=== PATIENT | female | born 2000 | race Caucasian/White ===

== ENCOUNTER 2018-09-16 13:37 | Emergency (ER) | payer OTHER | END 2018-09-16 16:22 | disposition home or self-care (01) | LOC: M ED 13:37 | DX: K59.00 Constipation, unspecified (principal); D17.9 Benign lipomatous neoplasm, unspecified | CPT/HCPCS: 74021 ==

== ENCOUNTER → 2021-11-05 | Outpatient (CLI) | payer OTHER ==
[~2021-11-05] MED LIST: COLA100C5 PO
== END ==
LOC: M WHC 13:29
PROVIDERS: ATTEND Advanced Practice Midwife
DX: Z34.01 Encounter for supervision of normal first pregnancy, first trimester (principal)

== ENCOUNTER → 2021-12-31 | Outpatient (CLI) | payer OTHER | LOC: M WHC 07:52 | PROVIDERS: ATTEND Obstetrics & Gynecology | DX: Z36.89 Encounter for other specified antenatal screening (principal); Z3A.18 18 weeks gestation of pregnancy ==

== ENCOUNTER → 2022-02-18 | Outpatient (CLI) | payer OTHER | LOC: M WHC 13:05 | PROVIDERS: ATTEND Obstetrics & Gynecology | DX: Z34.02 Encounter for supervision of normal first pregnancy, second trimester (principal) ==

== ENCOUNTER → 2022-03-25 | Outpatient (CLI) | payer OTHER ==
[2022-03-25 14:07] LABS: HEMATOCRIT 33.6 % (36.0-47.0); HEMOGLOBIN 10.8 g/dl (12.0-15.5); MEAN CORPUSCULAR HEMOGLOBIN 28.6 pg (27.0-33.0); MEAN CORPUSCULAR HGB CONC 32.1 g/dl (32.0-36.5); MEAN CORPUSCULAR VOLUME 88.9 fl (80.0-96.0); PLATELET COUNT, AUTOMATED 240 10^3/uL (150-450); RED BLOOD COUNT 3.78 10^6/uL (4.00-5.40); WHITE BLOOD COUNT 12.3 10^3/uL (4.0-10.0)
[2022-03-25 15:45] LABS: GC DNA AMPLIFICATION NEGATIVE (NEGATIVE)
== END ==
LOC: M PLALAB 08:35
PROVIDERS: ATTEND Obstetrics & Gynecology
DX: Z34.02 Encounter for supervision of normal first pregnancy, second trimester (principal)

== ENCOUNTER → 2022-04-08 | Outpatient (CLI) | payer OTHER | LOC: M WHC 12:34 | PROVIDERS: ATTEND Advanced Practice Midwife | DX: Z34.03 Encounter for supervision of normal first pregnancy, third trimester (principal) ==

== ENCOUNTER → 2022-04-20 | Outpatient (CLI) | payer OTHER | LOC: M LAB 04-16 07:17 | PROVIDERS: ATTEND Advanced Practice Midwife | DX: O99.810 Abnormal glucose complicating pregnancy (principal); Z3A.00 Weeks of gestation of pregnancy not specified ==

== ENCOUNTER → 2022-04-22 | Outpatient (REF) | payer OTHER | LOC: M LAB REF 22:40 | PROVIDERS: ATTEND Physician Assistant | DX: N39.0 Urinary tract infection, site not specified (principal) ==

== ENCOUNTER 2022-05-10 02:54 | Inpatient (IN) | payer OTHER ==
[2022-05-10] VITALS (42 sets, daily range): BP systolic 108–179; BP diastolic 61–95
[~2022-05-10] VITALS: Ht 165.1 cm; Wt 102.0 kg
[2022-05-10] MEDS ORDERED: METHYLERGONOVINE MALEATE 0.2 MG/ML VIAL (J2210) IM PRN (03:30)
[2022-05-10] MEDS ORDERED: OXYTOCIN DRIP 30 UNITS in IV 1 EA IV PRN ×4 (03:30)
[2022-05-10] MEDS ORDERED: CARBOPROST TROMETHAMINE 250 MCG/ML AMP IM PRN (03:30)
[2022-05-10] MEDS ORDERED: TRANEXAMIC ACID INJection 1,000 MG in NS 100 ML IV PRN (03:30)
[2022-05-10] MEDS ORDERED: LACTATED RINGER'S 1000 ML IV PRN (03:30)
[2022-05-10] MEDS ORDERED: PENICILLIN G POTASSIUM IV 5 MU in D5W MINI-BAG PLUS 100 ML IV STA (03:40)
[2022-05-10 03:57] LABS: HEMATOCRIT 34.6 % (36.0-47.0); HEMOGLOBIN 11.4 g/dl (12.0-15.5); MEAN CORPUSCULAR HEMOGLOBIN 27.9 pg (27.0-33.0); MEAN CORPUSCULAR HGB CONC 32.9 g/dl (32.0-36.5); MEAN CORPUSCULAR VOLUME 84.8 fl (80.0-96.0); PLATELET COUNT, AUTOMATED 296 10^3/uL (150-450); RED BLOOD COUNT 4.08 10^6/uL (4.00-5.40); WHITE BLOOD COUNT 16.7 10^3/uL (4.0-10.0)
[2022-05-10] MEDS ORDERED: HOME MED LIST COMPLETE! XX SCH ×2 (04:10→09:05)
[2022-05-10 04:20] LABS: ALBUMIN 2.7 GM/DL (3.2-5.2); ALT/SGPT 25 U/L (12-78); BILIRUBIN,TOTAL 0.3 MG/DL (0.2-1.0); BLOOD UREA NITROGEN 10 MG/DL (7-18); CALCIUM LEVEL 9.3 MG/DL (8.5-10.1); CARBON DIOXIDE LEVEL 20 MEQ/L (21-32); CHLORIDE LEVEL 106 MEQ/L (98-107); CREATININE FOR GFR 0.64 MG/DL (0.55-1.30); GLOMERULAR FILTRATION RATE > 60.0 (>60); GLUCOSE, FASTING 80 MG/DL (70-100); POTASSIUM SERUM 3.9 MEQ/L (3.5-5.1); SODIUM LEVEL 139 MEQ/L (136-145); TOTAL PROTEIN 6.9 GM/DL (6.4-8.2)
[2022-05-10] MEDS ORDERED: FENTANYL 2MCG/ML ROPIVACAINE 0.2% IN 0.9% NACL 100ML IVBAG As Ordered ONE (04:51)
[2022-05-10] MEDS ORDERED: diphenhydrAMINE 50MG/ML VIAL (J1200) IV PRN (05:50)
[2022-05-10] MEDS ORDERED: ONDANSETRON 4MG 2ML VIAL IV PRN (05:50)
[2022-05-10] MEDS ORDERED: ePHEDrine SULFATE 25 MG/5 ML(5MG/ML) SYRINGE IVP PRN (05:50)
[2022-05-10] MEDS ORDERED: LR 500 ML IV PRN (05:50)
[2022-05-10] MEDS ORDERED: EPIDURAL/PCA KEYS XX PRN (05:50)
[2022-05-10] MEDS ORDERED: NALOXONE INJ 0.4MG/1ML VIAL (J2310 PER 1MG) IV PRN (05:50)
[2022-05-10] MEDS: FENTANYL/ROPIVACAINE/NACL BAG 100 ML EPIDURAL SCH ×2 (06:03→14:32)
[2022-05-10] MEDS: PENICILLIN G POTASSIUM IV 2.5 MU in IV 1 EA IV SCH ×2 (08:37→12:17)
[2022-05-10] MEDS ORDERED: ACET-907 PO (09:03)
[2022-05-10] MEDS ORDERED: LR 1,000 ML IV SCH (10:50)
[2022-05-10 15:21] LABS: CORD GAS HCO3 A 17.1 MEQ/L; CORD GAS PCO2 A 60.8 mmHg; CORD GAS PH A 7.067 UNITS; CORD GAS PO2 A 24.1 mmHg; CORD GAS SBC A 12.9 MEQ/L
[2022-05-10 15:23] LABS: CORD GAS ABE V -6.3; CORD GAS HCO3 V 19.3 MEQ/L; CORD GAS O2 SAT V 75.3 %; CORD GAS PCO2 V 38.4 mmHg; CORD GAS PH V 7.318 UNITS; CORD GAS PO2 V 33.5 mmHg; CORD GAS SBC V 18.9 MEQ/L; CORD GAS TCO2 V 20.4 MEQ/L
[2022-05-10] MEDS ORDERED: DIBUCAINE 1% OINTMENT 30GM TOP PRN (16:15)
[2022-05-10] MEDS ORDERED: RHOGAM 300 MCG (1500 IU) INJ (J2790) IM SCH (16:15)
[2022-05-10] MEDS ORDERED: ACETAMINOPHEN TAB 650MG DOSE (2X325MG) PO PRN (16:15)
[2022-05-10] MEDS ORDERED: IBUPROFEN 600MG TAB PO PRN (16:15)
[2022-05-10] MEDS ORDERED: IBUPROFEN 800 MG TAB PO PRN (16:15)
[2022-05-10] MEDS ORDERED: ANUSOL HC CREAM 30GM TOP PRN (16:15)
[2022-05-10] MEDS ORDERED: ACETAMINOPHEN 500 MG TAB PO PRN (16:15)
[2022-05-10] MEDS ORDERED: MOM 30ML SUSPENSION UDC PO PRN (16:15)
[2022-05-10] MEDS: DOCUSATE SODIUM 100MG CAPSULE PO SCH (21:17)
[2022-05-11] MEDS ORDERED: UNRESOLVED CLARIFICATION ENTRY XX SCH (00:01)
[2022-05-11 06:00] VITALS: BP 100/66
[2022-05-11] MEDS: DOCUSATE SODIUM 100MG CAPSULE PO SCH ×2 (09:10→21:12)
[2022-05-11] MEDS: PRENATAL VITAMINS CHEWABLE TABLET PO SCH (09:10)
[2022-05-11 18:00] VITALS: BP 124/78
[2022-05-12 06:14] VITALS: BP 123/78
[2022-05-12] MEDS: PRENATAL VITAMINS CHEWABLE TABLET PO SCH (08:02)
[2022-05-12] MEDS: DOCUSATE SODIUM 100MG CAPSULE PO SCH (08:03)
[2022-05-12] MEDS ORDERED: MEASLES,MUMPS,RUBELLA VACCINE INJ (MMR-II) (90707) SC.IMMUN ONE (09:00)
== END 2022-05-12 13:05 | disposition home or self-care (01) | DRG 560 ==
LOC: M LDO 02:54 → M LDI 03:25 → M OBS 18:35
PROVIDERS: ADMIT Obstetrics & Gynecology; ATTEND Advanced Practice Midwife
PROC: 10E0XZZ Delivery of Products of Conception, External Approach (ICD-10-PCS; principal; 2022-05-10)
PROC: 0KQM0ZZ Repair Perineum Muscle, Open Approach (ICD-10-PCS; 2022-05-10)
DX: O69.81X0 Labor and delivery complicated by cord around neck, without compression, not applicable or unspecified (principal); Z3A.38 38 weeks gestation of pregnancy; O70.1 Second degree perineal laceration during delivery; Z37.0 Single live birth; O67.8 Other intrapartum hemorrhage

== ENCOUNTER → 2023-11-21 | Outpatient (REF) | payer OTHER ==
[~2023-11-21] MED LIST changes: +ACET-907 PO
== END ==
LOC: M LAB REF 21:17
PROVIDERS: ATTEND Physician Assistant Medical
DX: J02.9 Acute pharyngitis, unspecified (principal)

== ENCOUNTER → 2024-05-18 | Outpatient (REF) | payer BC, OTHER ==
[2024-05-18 15:30] LABS: GC DNA AMPLIFICATION NEGATIVE (NEGATIVE)
== END ==
LOC: M PLALAB 11:36
PROVIDERS: ATTEND Advanced Practice Midwife
DX: O99.211 Obesity complicating pregnancy, first trimester (principal)

== ENCOUNTER → 2024-07-09 | Outpatient (CLI) | payer BC, OTHER ==
[2024-07-09 16:11] LABS: HEMATOCRIT 36.8 % (36.0-47.0); HEMOGLOBIN 12.1 g/dl (12.0-15.5); MEAN CORPUSCULAR HEMOGLOBIN 28.9 pg (27.0-33.0); MEAN CORPUSCULAR HGB CONC 32.9 g/dl (32.0-36.5); MEAN CORPUSCULAR VOLUME 87.8 fl (80.0-96.0); PLATELET COUNT, AUTOMATED 256 10^3/uL (150-450); RED BLOOD COUNT 4.19 10^6/uL (4.00-5.40); WHITE BLOOD COUNT 11.4 10^3/uL (4.0-10.0)
[2024-07-09 16:50] LABS: HIV 1&2 SCREEN NEGATIVE (NEGATIVE)
[2024-07-09 16:57] LABS: HEPATITIS C VIRUS ABY INDEX 0.12 INDEX (<0.8)
[2024-07-09 17:22] LABS: GC DNA AMPLIFICATION NEGATIVE (NEGATIVE)
== END ==
LOC: M PLALAB 13:32
PROVIDERS: ATTEND Advanced Practice Midwife
DX: Z34.02 Encounter for supervision of normal first pregnancy, second trimester (principal)

== ENCOUNTER → 2024-08-21 | Outpatient (CLI) | payer OTHER | LOC: M RAD 14:52 | PROVIDERS: ATTEND Obstetrics & Gynecology | DX: Z34.80 Encounter for supervision of other normal pregnancy, unspecified trimester (principal) ==

== ENCOUNTER → 2024-09-17 | Outpatient (REF) | payer BC, OTHER ==
[2024-09-17 18:22] LABS: AMORPHOUS SEDIMENT SMALL (NEGATIVE); APPEARANCE, URINE CLOUDY (CLEAR); BACTERIA, URINE AUTO NEGATIVE (NEGATIVE); BILIRUBIN, URINE AUTO NEGATIVE (NEGATIVE); BLOOD, URINE BLOOD 3+ (NEGATIVE); COLOR, URINE RED (YELLOW); GLUCOSE, URINE (UA) AUTO NEGATIVE (NEGATIVE); KETONE, URINE AUTO NEGATIVE (NEGATIVE); LEUKOCYTE ESTERASE, URINE AUTO 3+ (NEGATIVE); MUCUS, URINE SMALL (NEGATIVE); NITRITE, URINE AUTO NEGATIVE (NEGATIVE); PROTEIN, URINE AUTO 1+ mg/dL (NEGATIVE); RBC, URINE AUTO 41 /HPF (0-3); SPECIFIC GRAVITY URINE AUTO 1.018 (1.002-1.035); SQUAMOUS EPITHELIAL CELL UR AU 7 /HPF (0-6); UROBILINOGEN, URINE AUTO 0.2 mg/dL (0.0-2.0); WBC, URINE AUTO 68 /HPF (0-3)
== END ==
LOC: M PLALAB 15:33
PROVIDERS: ATTEND Obstetrics & Gynecology
DX: R31.0 Gross hematuria (principal)

== ENCOUNTER → 2024-10-29 | Outpatient (CLI) | payer OTHER ==
[2024-10-29 14:59] LABS: HEMATOCRIT 32.5 % (36.0-47.0); HEMOGLOBIN 10.5 g/dl (12.0-15.5); MEAN CORPUSCULAR HGB CONC 32.3 g/dl (32.0-36.5); MEAN CORPUSCULAR VOLUME 86.7 fl (80.0-96.0); PLATELET COUNT, AUTOMATED 230 10^3/uL (150-450); RED BLOOD COUNT 3.75 10^6/uL (4.00-5.40); WHITE BLOOD COUNT 13.4 10^3/uL (4.0-10.0)
[2024-10-29 16:07] LABS: GLUCOSE CHALLENGE TEST 1 HOUR 129 MG/DL (LESS THAN 140)
[2024-10-29 16:15] LABS: GC DNA AMPLIFICATION NEGATIVE (NEGATIVE)
[2024-10-29 16:37] LABS: HIV 1&2 SCREEN NEGATIVE (NEGATIVE)
[2024-10-29 16:44] LABS: HEPATITIS C VIRUS ABY INDEX < 0.02 INDEX (<0.8)
== END ==
LOC: M PLALAB 08:55
PROVIDERS: ATTEND Obstetrics & Gynecology
DX: Z34.82 Encounter for supervision of other normal pregnancy, second trimester (principal)

== ENCOUNTER → 2024-11-20 | Outpatient (REF) | payer OTHER | LOC: M PLALAB 11:59 | PROVIDERS: ATTEND Nurse Practitioner Family | DX: Z36.89 Encounter for other specified antenatal screening (principal); Z3A.37 37 weeks gestation of pregnancy ==

== ENCOUNTER 2024-11-29 14:45 | Inpatient (IN) | payer OTHER ==
[~2024-11-29] VITALS: Ht 165.1 cm; Wt 120.0 kg
[~2024-11-29 14:45] MED LIST changes: -MULTTAB20 PO
[2024-11-29] MEDS ORDERED: LIDOCAINE 1% MDV 20ML VIAL INFIL PRN (15:20)
[2024-11-29] MEDS ORDERED: OXYTOCIN DRIP 30 UNITS in IV 1 EA IV PRN (15:20)
[2024-11-29] MEDS ORDERED: MULTTAB20 PO (15:27)
[2024-11-29] MEDS ORDERED: HOME MED LIST COMPLETE! XX SCH (15:30)
[2024-11-29 15:40] LABS: HEMATOCRIT 31.2 % (36.0-47.0); HEMOGLOBIN 10.1 g/dl (12.0-15.5); MEAN CORPUSCULAR HEMOGLOBIN 27.1 pg (27.0-33.0); MEAN CORPUSCULAR HGB CONC 32.4 g/dl (32.0-36.5); MEAN CORPUSCULAR VOLUME 83.6 fl (80.0-96.0); PLATELET COUNT, AUTOMATED 260 10^3/uL (150-450); RED BLOOD COUNT 3.73 10^6/uL (4.00-5.40); WHITE BLOOD COUNT 11.7 10^3/uL (4.0-10.0)
[2024-11-29 16:15] LABS: ALT/SGPT 18 U/L (7.0-40); AST/SGOT 39 U/L (<34); BILIRUBIN,TOTAL 0.4 MG/DL (0.3-1.2); CREATININE FOR GFR 0.53 MG/DL (0.55-1.30); GLOMERULAR FILTRATION RATE > 60.0 (>60); LDH LACTATE DEHYDROGENASE 186 U/L (120-246)
[2024-11-29 16:37] LABS: URIC ACID 6.2 MG/DL (3.1-7.8)
[2024-11-29 16:40] LABS: TOTAL PROTEIN,RANDOM URINE 17.7 MG/DL (0.0-14.0)
[2024-11-29 16:45] LABS: CREATININE,RANDOM URINE 85.1 MG/DL
[2024-11-29] MEDS ORDERED: LR 1,000 ML IV SCH ×2 (17:20→19:00)
[2024-11-29] MEDS: LR 1,000 ML IV ONE (17:25)
[2024-11-29 17:44] LABS: HEPATITIS C VIRUS ABY INDEX 0.12 INDEX (<0.8)
[2024-11-29] MEDS: LACTATED RINGER'S 1000 ML IV STA (18:59)
[2024-11-29] MEDS ORDERED: ceFAZolin SOD 3 GM in IV 1 EA IV ONE (19:00)
[2024-11-29] MEDS ORDERED: OXYTOCIN 30UNITS IN 0.9% NaCl 500ML IV BAG As Ordered ONE (19:19)
[2024-11-29] MEDS ORDERED: KETOROLAC 60MG 2ML VIAL As Ordered ONE (19:19)
[2024-11-29] MEDS ORDERED: ONDANSETRON 4MG 2ML VIAL As Ordered ONE (19:19)
[2024-11-29] MEDS: ceFAZolin SOD 3 GM in DEXTROSE 5% (D5W) MINI-BAG PLU 1... IV ONE (19:20)
[2024-11-29] MEDS: BICITRA 30ML SOLN UDC PO ONE (19:44)
[2024-11-29] MEDS ORDERED: PHENYLephrine 500MCG 5ML (100MCG/ML) SYRINGE As Ordered ONE (19:45)
[2024-11-29] MEDS ORDERED: MORPHINE PRES-FREE INJ 10 MG/10 ML VIAL As Ordered ONE (19:45)
[2024-11-29] MEDS ORDERED: ePHEDrine SULFATE 25 MG/5 ML(5MG/ML) SYRINGE As Ordered ONE (19:45)
[2024-11-29] MEDS ORDERED: ACETAMINOPHEN 1000MG/100ML IV BAG As Ordered ONE (20:02)
[2024-11-29 20:36] LABS: CORD GAS ABE A 1.1; CORD GAS HCO3 A 28.8 MMOL/L; CORD GAS O2 SAT A 49.7 %; CORD GAS PCO2 A 58.2 mmHg; CORD GAS PH A 7.312 UNITS; CORD GAS PO2 A 23.3 mmHg; CORD GAS SBC A 24.2 MMOL/L; CORD GAS TCO2 A 30.6 MMOL/L
[2024-11-29 20:37] LABS: CORD GAS ABE V -3.4; CORD GAS HCO3 V 21.4 MMOL/L; CORD GAS O2 SAT V 75.6 %; CORD GAS PCO2 V 38.2 mmHg; CORD GAS PH V 7.367 UNITS; CORD GAS PO2 V 31.8 mmHg; CORD GAS SBC V 21.1 MMOL/L; CORD GAS TCO2 V 22.6 MMOL/L
[2024-11-29] MEDS ORDERED: DOCUSATE SODIUM 100MG CAPSULE PO PRN (21:10)
[2024-11-29] MEDS ORDERED: RHOGAM 300MCG (1500IU) INJ IM SCH (21:10)
[2024-11-29] MEDS ORDERED: SIMETHICONE 80MG CHEW TAB PO PRN (21:10)
[2024-11-29 21:58] VITALS: TEMP 97.4
[2024-11-29 23:00] VITALS: BP 123/72; O2SAT 96
[2024-11-29 23:30] VITALS: BP 125/65; O2SAT 95
[2024-11-30] VITALS (8 sets, daily range): BP systolic 101–130; BP diastolic 67–85; O2SAT 96–98
[2024-11-30] MEDS ORDERED: UNRESOLVED CLARIFICATION ENTRY XX SCH (00:01)
[2024-11-30] MEDS: PERCOCET 5MG/325MG TAB PO PRN (00:37)
[2024-11-30] MEDS: LR 1,000 ML IV SCH (00:37)
[2024-11-30] MEDS: KETOROLAC 30 MG/ML 1ML VIAL IV SCH (01:40)
[2024-11-30] MEDS: ONDANSETRON 4MG 2ML VIAL IV PRN (01:40)
[2024-11-30] MEDS: METOCLOPRAMIDE INJ 10MG/2ML VIAL IV PRN (05:20)
[2024-11-30 07:15] LABS: HEMATOCRIT 28.3 % (36.0-47.0); HEMOGLOBIN 8.8 g/dl (12.0-15.5); MEAN CORPUSCULAR HEMOGLOBIN 26.5 pg (27.0-33.0); MEAN CORPUSCULAR HGB CONC 31.1 g/dl (32.0-36.5); MEAN CORPUSCULAR VOLUME 85.2 fl (80.0-96.0); PLATELET COUNT, AUTOMATED 214 10^3/uL (150-450); RED BLOOD COUNT 3.32 10^6/uL (4.00-5.40); WHITE BLOOD COUNT 10.1 10^3/uL (4.0-10.0)
[2024-11-30] MEDS: ENOXAPARIN 60MG/0.6ML SYRINGE (J1650 PER 10MG) SC SCH (08:02)
[2024-11-30] MEDS: PRENATAL VITAMINS CHEWABLE TABLET PO SCH (08:03)
[2024-11-30] MEDS: IBUPROFEN 800 MG TAB PO SCH (22:16)
[2024-12-01] MEDS: PERCOCET 5MG/325MG TAB PO PRN (01:56)
[2024-12-01 02:00] VITALS: BP 126/68; O2SAT 98
[2024-12-01 05:47] VITALS: BP 128/89; O2SAT 97
[2024-12-01 10:00] VITALS: BP 146/81; O2SAT 96
[2024-12-01] MEDS: MEASLES,MUMPS,RUBELLA VACCINE INJ (MMR-II) SC.IMMUN ONE (11:12)
[2024-12-01] MEDS ORDERED: IBUP80TA PO (11:24)
[2024-12-01] MEDS ORDERED: PERCOCET PO (11:24)
[2024-12-04 18:09] LABS: PARVOVIRUS B19 QUANT PCR Negative copies/mL (Negative)
[2024-12-05 21:07] LABS: ANTI PARVO VIRUS LEVEL IGG 2.5 (<0.9); ANTI PARVO VIRUS LEVEL IgM 0.1 (<0.9)
== END 2024-12-01 12:20 | disposition home or self-care (01) | DRG 540 ==
LOC: M LDI 14:45 → UNDOADMIN 14:45 → M LDI 15:05 → M OBS 22:45
PROVIDERS: ADMIT Specialist; ATTEND Specialist
PROC: 0UB60ZZ Excision of Left Fallopian Tube, Open Approach (ICD-10-PCS; 2024-11-29)
PROC: 10D00Z1 Extraction of Products of Conception, Low, Open Approach (ICD-10-PCS; principal; 2024-11-29 21:08)
DX: O36.63X0 Maternal care for excessive fetal growth, third trimester, not applicable or unspecified (principal); N83.8 Other noninflammatory disorders of ovary, fallopian tube and broad ligament; Z3A.38 38 weeks gestation of pregnancy; O26.893 Other specified pregnancy related conditions, third trimester; Z37.0 Single live birth

== ENCOUNTER → 2024-11-29 | Outpatient (CLI) | payer OTHER ==
[~2024-11-29] MED LIST changes: +MULTTAB20 PO
== END ==
LOC: M RAD 12:54
PROVIDERS: ATTEND Nurse Practitioner Family
DX: O26.843 Uterine size-date discrepancy, third trimester (principal); Z3A.38 38 weeks gestation of pregnancy

== ENCOUNTER → 2025-02-21 | Outpatient (REF) | payer OTHER ==
[~2025-02-21] MED LIST changes: +IBUP80TA PO; +MULTTAB20 PO; +PERCOCET PO
[2025-02-21 18:56] LABS: BASO % 0.6 % (0.0-1.0); EOS # 0.1 10^3/uL (0.0-0.5); EOS % 1.1 % (0.0-3.0); HEMATOCRIT 42.5 % (36.0-47.0); HEMOGLOBIN 13.2 g/dl (12.0-15.5); LYMPH # 1.5 10^3/uL (1.5-5.0); LYMPH % 27.1 % (24.0-44.0); MEAN CORPUSCULAR HEMOGLOBIN 26.4 pg (27.0-33.0); MEAN CORPUSCULAR HGB CONC 31.1 g/dl (32.0-36.5); MONO # 0.7 10^3/uL (0.0-0.8); MONO % 12.3 % (2.0-8.0); NEUTROPHILS # 3.1 10^3/uL (1.5-8.5); NEUTROPHILS % 58.5 % (36.0-66.0); PLATELET COUNT, AUTOMATED 274 10^3/uL (150-450); WHITE BLOOD COUNT 5.4 10^3/uL (4.0-10.0)
[2025-02-21 19:02] LABS: ALBUMIN 3.9 G/DL (3.2-5.2); ALKALINE PHOSPHATASE 99 U/L (35-104); ALT/SGPT 110 U/L (7.0-40); AST/SGOT 85 U/L (<34); BILIRUBIN,TOTAL 0.3 MG/DL (0.3-1.2); BLOOD UREA NITROGEN 8 MG/DL (9-23); CALCIUM LEVEL 9.3 MG/DL (8.5-10.1); CARBON DIOXIDE LEVEL 28 MMOL/L (20-31); CHLORIDE LEVEL 103 MMOL/L (98-107); CHOLESTEROL LEVEL 111 MG/DL (<200); CHOLESTEROL RISK RATIO 2.54 (<5); CREATININE FOR GFR 0.48 MG/DL (0.55-1.30); GLOMERULAR FILTRATION RATE > 90.0 (>60); GLUCOSE, FASTING 84 MG/DL (60-100); HDL CHOLESTEROL 43.7 MG/DL (>40); LDL CHOLESTEROL 47.5 MG/DL (<100); NON-HDL-C 67.3 MG/DL; POTASSIUM SERUM 4.5 MMOL/L (3.5-5.1); SODIUM LEVEL 141 MMOL/L (136-145); TOTAL PROTEIN 7.4 G/DL (5.7-8.2); TRIGLYCERIDES LEVEL 99 MG/DL (<150)
[2025-02-21 19:03] LABS: THYROID STIMULATING HORMONE 1.893 uIU/ML (0.55-4.78)
[2025-02-21 19:41] LABS: HEMOGLOBIN A1c 5.2 % (4.0-6.0)
== END ==
LOC: M LAB REF 17:50
PROVIDERS: ATTEND Nurse Practitioner Family
DX: E66.9 Obesity, unspecified (principal); R53.83 Other fatigue

== ENCOUNTER → 2025-05-27 | Outpatient (REF) | payer OTHER, MEDICAID ==
[2025-05-27 12:29] LABS: ALT/SGPT 53 U/L (7.0-40); AST/SGOT 46 U/L (<34)
[2025-05-27 13:02] LABS: HIV 1&2 SCREEN NEGATIVE (NEGATIVE)
[2025-05-27 13:10] LABS: HEPATITIS C VIRUS ABY INDEX < 0.02 INDEX (<0.8)
== END ==
LOC: M LAB REF 11:56
PROVIDERS: ATTEND Nurse Practitioner Family
DX: R79.89 Other specified abnormal findings of blood chemistry (principal); Z11.9 Encounter for screening for infectious and parasitic diseases, unspecified

== ENCOUNTER → 2025-07-15 | Outpatient (REF) | payer OTHER, MEDICAID | LOC: M LAB REF 21:20 | PROVIDERS: ATTEND Physician Assistant Medical | DX: J02.9 Acute pharyngitis, unspecified (principal) ==